=== PATIENT | female | born 1990 | race Caucasian/White ===

== ENCOUNTER 2024-01-08 12:17 | Emergency (ER) | payer MEDICAID ==
[2024-01-08 14:28] LABS: BASOPHILS ABSOLUTE AUTO 0.03 K/uL (0.02-0.10); BASOPHILS PERCENT AUTO 0.4 % (0.0-0.5); EOSINOPHILS ABSOLUTE AUTO 0.08 K/uL (0.04-0.40); LYMPHOCYTES ABSOLUTE AUTO 2.12 K/uL (1.50-4.00); LYMPHOCYTES PERCENT AUTO 25.4 % (20.0-40.0); MEAN CORPUSCULAR HEMOGLOBIN 31.9 pg (27.0-32.0); MEAN CORPUSCULAR HGB CONC 35.7 g/dL (31.0-35.0); MEAN CORPUSCULAR VOLUME 89 fL (76-96); MEAN PLATELET VOLUME 10.5 fL (6.0-10.0); MONOCYTES PERCENT AUTO 4.8 % (3.0-10.0); NEUTROPHILS ABSOLUTE AUTO 5.72 K/uL (2.00-7.50); NEUTROPHILS PERCENT AUTO 68.4 % (45.0-70.0); PLATELET COUNT,PLT 257 K/uL (150-500); RED CELL DISTRIBUTION WIDTH 12.8 % (11.0-16.0); WHITE BLOOD CELL COUNT,WBC 8.4 K/uL (4.0-11.0)
[2024-01-08] MEDS: Ondansetron 4 MG/2 ML SDV IVPUSH ONE (14:32)
[2024-01-08] MEDS: Sodium Chloride 0.9% 1,000 ML IV ONE (14:32)
[2024-01-08 14:35] LABS: A/G RATIO 1.4 (0.8-2.0); ALBUMIN 4.4 g/dL (3.4-5.0); ANION GAP 11.8 mmol/L (5.0-15.0); BILIRUBIN TOTAL 0.5 mg/dL (0.0-1.0); BUN/CREATININE RATIO 11.8 (6-25); CALCIUM 8.3 mg/dL (8.5-10.1); CARBON DIOXIDE,CO2 27.7 mmol/L (21.0-32.0); CREATININE 0.68 mg/dL (0.55-1.02); EST CRCL DRUG DOSING (CG) 92.2 mL/min; POTASSIUM,K 3.5 mmol/L (3.5-5.1); PROTEIN TOTAL,TP 7.5 g/dL (6.4-8.2)
[2024-01-08 15:24] LABS: APPEARANCE,URINE CLEAR (CLEAR); BILIRUBIN,URINE NEGATIVE (NEGATIVE); COLOR,URINE YELLOW; GLUCOSE,URINE NEGATIVE (NEGATIVE); KETONES,URINE NEGATIVE (NEGATIVE); LEUKOCYTE ESTERASE,URINE NEGATIVE (NEGATIVE); NITRITE,URINE NEGATIVE (NEGATIVE); OCCULT BLOOD,URINE TRACE-LYSED (NEGATIVE); PROTEIN,URINE NEGATIVE (NEGATIVE); UROBILINOGEN,URINE 0.2 E.U./dL (0.2-1.0)
[2024-01-08 15:28] LABS: MUCUS,URINE MODERATE /HPF; RBC,URINE 0-5 /HPF; SQUAMOUS EPITHELIAL CELLS,UR FEW /HPF; WBC,URINE NOT SEEN /HPF
[2024-01-08 16:23] LABS: INFLUENZA A NAA NEGATIVE (NEGATIVE); INFLUENZA B NAA NEGATIVE (NEGATIVE)
[2024-01-08 16:36] LABS: CORONAVIRUS COVID-19 NAA NEGATIVE (NEGATIVE)
[2024-01-08] MEDS ORDERED: Ondansetron 4 MG Tab.DIS ONE (17:00)
== END 2024-01-08 17:08 | disposition home or self-care (01) ==
LOC: LB.ED 12:17
DX: R42 Dizziness and giddiness (principal)
CPT/HCPCS: 0240U; 36415; 80053; 81001; 85025; 96361; 96374; 99284; J2405; J7030; Q0162